=== PATIENT | female | born 1965 | race Caucasian/White ===

== ENCOUNTER → 2016-12-05 09:35 | Emergency (ER) | payer OTHER ==
[2016-12-05 11:16] LABS: Hematocrit 44 % (35-47); Hemoglobin 14.6 g/dl (12.0-16.0); Mean Corpuscular HGB Conc 33 g/dl (31-36); Mean Corpuscular Hemoglobin 30 pg (27-31); Mean Corpuscular Volume 89 fL (80-97); Mean Platelet Volume 9 um3 (7.4-10.4); Red Blood Count 4.97 10^6/ul (4.0-5.4); Red Cell Distribution Width 14 % (10.5-15); White Blood Count 8.9 10^3/ul (3.5-10.8)
--- NOTE | 2016-12-05 11:35 | RAD ---
INDICATION: Chest pain and pressure, congestion. Tobacco use. COMPARISON: No relevant prior exams available on the [facility] PACS for comparison. TECHNIQUE: Dual energy PA and routine lateral views of the chest were obtained. REPORT: Clear lungs and pleural spaces. Negative for pneumothorax. The heart, pulmonary vasculature, and mediastinal contours are unremarkable. No thoracic fractures evident. Posterior element internal fixation hardware at the proximal lumbar spine. IMPRESSION: No evidence for acute intrathoracic disease.
[2016-12-05 12:02] LABS: Albumin 4.2 g/dL (3.2-5.2); BUN/Creatinine Ratio 18.2 (8-20); Calcium 9.8 mg/dL (8.6-10.3); EGFR African American 121.9 (>60); EGFR Non-African American 94.8 (>60); Globulin 1.9 g/dL (2-4); Potassium 4.1 mmol/L (3.5-5.0); Total Bilirubin 0.5 mg/dL (0.2-1.0); Total Protein 6.1 g/dL (6.4-8.9)
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
[2016-12-05 13:43] VITALS: BP 138/75
== END | disposition home or self-care (01) ==
LOC: ED 09:35
DX: M25.519 Pain in unspecified shoulder (principal); R07.9 Chest pain, unspecified; F17.210 Nicotine dependence, cigarettes, uncomplicated
CPT/HCPCS: 36415; 71020; 80053; 84484; 85025; 85379; 93005; 99282

== ENCOUNTER 2017-03-15 12:17 | Emergency (ER) | payer OTHER ==
[2017-03-15 14:44] VITALS: BP 120/60
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
== END 2017-03-15 15:19 | disposition home or self-care (01) ==
LOC: UCEAST 12:17
DX: J40 Bronchitis, not specified as acute or chronic (principal); J06.9 Acute upper respiratory infection, unspecified; F17.210 Nicotine dependence, cigarettes, uncomplicated
CPT/HCPCS: 99212; G0463

== ENCOUNTER 2019-08-21 10:10 | Emergency (ER) | payer OTHER ==
[2019-08-21 10:36] VITALS: BP 138/71
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
== END 2019-08-21 11:10 | disposition home or self-care (01) ==
LOC: UCEAST 10:10
DX: H61.21 Impacted cerumen, right ear (principal); Z88.0 Allergy status to penicillin
CPT/HCPCS: 99211; G0463